=== PATIENT | female | born 1990 | race Two or more races ===

== ENCOUNTER 2018-02-01 18:33 | Emergency (ER) | payer OTHER ==
[~2018-02-01] VITALS: Ht 154.9 cm; Wt 70.3 kg
[~2018-02-01 18:33] MED LIST: ENALAPRIL MALEA10 MG NGT
== END 2018-02-01 22:16 | disposition home or self-care (01) ==
LOC: ER 18:33
DX: G44.209 Tension-type headache, unspecified, not intractable (principal)

== ENCOUNTER 2018-08-04 10:39 | Emergency (ER) | payer OTHER ==
[~2018-08-04] VITALS: Ht 154.9 cm; Wt 81.6 kg
== END 2018-08-04 11:56 | disposition home or self-care (01) ==
LOC: ER 10:39
DX: J02.9 Acute pharyngitis, unspecified (principal)

== ENCOUNTER 2019-01-20 08:36 | Emergency (ER) | payer OTHER ==
[~2019-01-20] VITALS: Ht 154.9 cm; Wt 81.6 kg
== END 2019-01-20 12:32 | disposition home or self-care (01) ==
LOC: ER 08:36
DX: B34.9 Viral infection, unspecified (principal)

== ENCOUNTER 2020-06-30 18:48 | Emergency (ER) | payer OTHER ==
[~2020-06-30] VITALS: Ht 154.9 cm; Wt 81.6 kg
[2020-06-30] MEDS ORDERED: [UNRECOGNIZED DRUG - OTHER] (19:13)
[2020-06-30] MEDS ORDERED: CLEOCIN HCL300 MG PO (23:08)
[2020-06-30] MEDS ORDERED: INTESTINEX680 M2 PO (23:08)
[2020-06-30] MEDS ORDERED: LEVAQUIN750 MG PO (23:08)
== END 2020-06-30 22:50 | disposition home or self-care (01) ==
LOC: ER 18:48
DX: R59.0 Localized enlarged lymph nodes (principal); M54.2 Cervicalgia; Z03.818 Encounter for observation for suspected exposure to other biological agents ruled out
CPT/HCPCS: 70491; Q9965

== ENCOUNTER 2022-11-09 19:11 | Emergency (ER) | payer OTHER ==
[~2022-11-09] VITALS: Ht 154.9 cm; Wt 67.6 kg
[~2022-11-09 19:11] MED LIST changes: +CLEOCIN HCL300 MG PO; +INTESTINEX680 M2 PO; +LEVAQUIN750 MG PO; +[UNRECOGNIZED DRUG - OTHER]
[2022-11-09] MEDS ORDERED: BACLOFEN10 MG (19:33)
[2022-11-10] MEDS ORDERED: PEPCID40 MG PO (05:20)
[2022-11-10] MEDS ORDERED: ZOFRAN8 MG PO (05:20)
[2022-11-10] MEDS ORDERED: LEVSIN0.125 MG PO (05:20)
== END 2022-11-10 05:26 ==
LOC: ER 19:11
DX: K80.20 Calculus of gallbladder without cholecystitis without obstruction (principal); R10.11 Right upper quadrant pain

== ENCOUNTER 2023-01-09 21:26 | Emergency (ER) | payer OTHER ==
[~2023-01-09] VITALS: Ht 154.9 cm; Wt 68.0 kg
[~2023-01-09 21:26] MED LIST changes: +BACLOFEN10 MG; +LEVSIN0.125 MG PO; +PEPCID40 MG PO; +ZOFRAN8 MG PO
[2023-01-10] MEDS ORDERED: KETO10TA2 PO (06:07)
[2023-01-10] MEDS ORDERED: CEPHALEXIN500 MG PO (06:07)
== END 2023-01-10 06:12 ==
LOC: ER 21:26
DX: N30.80 Other cystitis without hematuria (principal); R10.11 Right upper quadrant pain; M79.604 Pain in right leg
CPT/HCPCS: 36415; 74177; Q9965

== ENCOUNTER → 2023-05-21 | Emergency (ER) | payer OTHER ==
[~2023-05-21] VITALS: Ht 154.9 cm; Wt 72.6 kg
[~2023-05-21] MED LIST changes: +AMOX-CLAV 875-1 EACH PO; +CEPHALEXIN500 MG PO; +KETO10TA2 PO; +ZYRTEC10 MG PO
== END | disposition home or self-care (01) ==
LOC: ER 10:27
DX: H66.90 Otitis media, unspecified, unspecified ear (principal)

== ENCOUNTER 2023-08-11 23:02 | Emergency (ER) | payer OTHER ==
[~2023-08-11] VITALS: Ht 154.9 cm; Wt 72.6 kg
[2023-08-11] MEDS ORDERED: NEURONTIN300 MG (23:45)
[2023-08-11] MEDS ORDERED: SULINDAC200 MG PO (23:45)
[2023-08-11] MEDS ORDERED: LYVISPAH20 MG PO (23:45)
[2023-08-12 02:04] LABS: HEMATOCRIT 35.5 % (36.0-45.00); HEMOGLOBIN 11.9 g/dL (12.0-15.00); MEAN CELL VOLUME 91.4 fL (80.00-100.00); MEAN CORPUSCULAR HEMOGLOBIN 30.6 pg (27.00-32.0); MEAN CORPUSCULAR HGB CONC 33.5 g/dl (32.0-36.0); PLATELET COUNT 319 K/uL (150-450); RED BLOOD COUNT 3.89 M/uL (4.00-6.00); RED CELL DISTRIBUTION WIDTH 13.6 % (11.5-14.5)
[2023-08-12 02:15] LABS: BILIRUBIN TOTAL 0.41 mg/dL (0.3-1.2); CREATININE SERUM 0.74 mg/dL (0.55-1.02); GFR 90.38; GLOBULINA 3.8 G/DL (2.4-3.5); POTASSIUM 3.96 mEq/L (3.5-5.1); TOTAL PROTEIN 7.8 gm/dL (6.4-8.2)
[2023-08-12] MEDS ORDERED: FAMCICLOVIR500 MG PO (04:01)
== END 2023-08-12 06:20 | disposition home or self-care (01) ==
LOC: ER 23:02 → EMR PED 08-12 00:22
PROVIDERS: General Practice
DX: K12.0 Recurrent oral aphthae (principal); Z20.822 Contact with and (suspected) exposure to COVID-19

== ENCOUNTER 2023-12-18 19:53 | Emergency (ER) | payer OTHER ==
[~2023-12-18] VITALS: Ht 154.9 cm; Wt 73.9 kg
[~2023-12-18 19:53] MED LIST changes: +FAMCICLOVIR500 MG PO; +LYVISPAH20 MG PO; +NEURONTIN300 MG; +SULINDAC200 MG PO
[2023-12-18] MEDS ORDERED: KETOROLAC TROMETHAMINE 30 MG VIAL IM ONE (20:15)
[2023-12-18 20:47] LABS: HEMATOCRIT 36.1 % (36.0-45.00); HEMOGLOBIN 12.3 g/dL (12.0-15.00); MEAN CELL VOLUME 90.6 fL (80.00-100.00); MEAN CORPUSCULAR HEMOGLOBIN 30.9 pg (27.00-32.0); MEAN CORPUSCULAR HGB CONC 34.1 g/dl (32.0-36.0); PLATELET COUNT 294 K/uL (150-450); RED BLOOD COUNT 3.98 M/uL (4.00-6.00); RED CELL DISTRIBUTION WIDTH 13.6 % (11.5-14.5)
[2023-12-18 21:42] LABS: URINE APPEARANCE Clear; URINE BILIRRUBIN Negative (NEGATIVE); URINE BLOOD Negative; URINE COLOR Yellow; URINE GLUCOSE Negative (NEGATIVE); URINE LEUKOCYTE Negative; URINE NITRATE Negative; URINE PROTEIN Negative (NEGATIVE)
[2023-12-18 21:45] LABS: URINE BACTERIA 929.7 uL (0.0-1933); URINE EPITHELIAL CELLS 22.7 uL (0.0-38.8); URINE RBC 18.6 uL (0.0-20.8); URINE WBC 6.8 uL (0.0-23.2)
[2023-12-19] MEDS ORDERED: LEVSIN/SL0.125 MG SL (01:56)
[2023-12-19] MEDS ORDERED: INTESTINEX680 M2 PO (01:56)
== END 2023-12-19 02:09 ==
LOC: ER 19:54
PROVIDERS: Emergency Medicine
DX: R10.9 Unspecified abdominal pain (principal); M19.90 Unspecified osteoarthritis, unspecified site

== ENCOUNTER 2024-09-28 23:18 | Emergency (ER) | payer OTHER ==
[~2024-09-28] VITALS: Ht 154.9 cm; Wt 70.3 kg
[~2024-09-28 23:18] MED LIST changes: +LEVSIN/SL0.125 MG SL
[2024-09-28 23:29] VITALS: BP 126/86; O2SAT 99
[2024-09-29] MEDS ORDERED: FAMOTIDINE/PF 20 MG/2 ML VIAL IV PUSH STA (00:34)
[2024-09-29] MEDS ORDERED: PROMETHAZINE HCL 50 MG/ML AMPUL IM STA (00:34)
[2024-09-29] MEDS ORDERED: KETOROLAC TROMETHAMINE 30 MG VIAL IV STA (00:36)
[2024-09-29] MEDS ORDERED: PROMETHAZINE HCL 50 MG/ML AMPUL IM ONE (00:40)
[2024-09-29] MEDS ORDERED: FAMOTIDINE/PF 20 MG/2 ML VIAL ONE (00:41)
[2024-09-29] MEDS ORDERED: 0.9 % SODIUM CHLORIDE 500 ML IV ONE (00:45)
[2024-09-29 01:14] LABS: PH,URINE 6.5 (5.0-8.0); URINE APPEARANCE Cloudy; URINE BILIRRUBIN Negative (NEGATIVE); URINE BLOOD Negative; URINE COLOR Dark Yellow; URINE GLUCOSE Negative (NEGATIVE); URINE LEUKOCYTE Trace; URINE NITRATE Negative; URINE PROTEIN 30 (NEGATIVE)
[2024-09-29 01:14] LABS: HEMOGLOBIN 13.1 g/dL (12.0-15.00); MEAN CELL VOLUME 93.9 fL (80.00-100.00); MEAN CORPUSCULAR HEMOGLOBIN 30.7 pg (27.00-32.0); MEAN CORPUSCULAR HGB CONC 32.7 g/dl (32.0-36.0); PLATELET COUNT 291 K/uL (150-450); RED BLOOD COUNT 4.26 M/uL (4.00-6.00); RED CELL DISTRIBUTION WIDTH 13.6 % (11.5-14.5)
[2024-09-29 01:18] LABS: URINE EPITHELIAL CELLS 94.6 uL (0.0-38.8); URINE RBC 32.1 uL (0.0-20.8); URINE WBC 119.6 uL (0.0-23.2)
[2024-09-29 02:18] LABS: URINE BACTERIA > 9821.5 uL (0.0-1933); URINE CAST 0.58 uL (0.0-1.40); URINE KETONE >=160 (NEGATIVE)
[2024-09-29 02:32] LABS: ALBUMIN 4.2 gm/dL (3.4-5.0); ALKALINE PHOSPHATASE 68 U/L (50-136); ALT/SGPT 15 U/L (12-78); AMYLASE 61 U/L (25-115); ANION GAP 13 (10.0-20.0); AST/SGOT 14 U/L (15-37); BILIRUBIN TOTAL 0.89 mg/dL (0.3-1.2); BLOOD UREA NITROGEN 11 mg/dL (7-18); BUN CREA RATIO 16 (7.0-25.0); CALCIUM 9.1 mg/dL (8.5-10.1); CARBON DIOXIDE 26 mEq/L (21-32); CHLORIDE 106 mmol/L (98-107); CREATININE SERUM 0.68 mg/dL (0.55-1.02); GFR 99.04; GLOBULINA 3.7 G/DL (2.4-3.5); GLUCOSE FASTING 107 mg/dL (65-100); LIPASE 26 U/L (13-75); OSMOLALITY SERUM 281 MOSM/KG (275-295); POTASSIUM 3.71 mEq/L (3.5-5.1); SODIUM 141 mmol/L (136-145); TOTAL PROTEIN 7.9 gm/dL (6.4-8.2)
[2024-09-29 02:54] LABS: HCG QUANTITATIVE < 1 mUI/mL (1-3)
[2024-09-29] MEDS ORDERED: CEFTRIAXONE SODIUM 1,000 MG VIAL IV STA (04:09)
[2024-09-29] MEDS ORDERED: DOLOGESIC-DF 51 EACH PO (04:13)
[2024-09-29] MEDS ORDERED: CEFTRIAXONE SODIUM 1,000 MG VIAL ONE (04:15)
== END 2024-09-29 04:20 ==
LOC: ER 23:21
PROVIDERS: General Practice
DX: N39.0 Urinary tract infection, site not specified (principal); N83.209 Unspecified ovarian cyst, unspecified side; R11.10 Vomiting, unspecified

== ENCOUNTER 2024-10-02 20:57 | Emergency (ER) | payer OTHER ==
[~2024-10-02] VITALS: Ht 154.9 cm; Wt 72.6 kg
[~2024-10-02 20:57] MED LIST changes: +DOLOGESIC-DF 51 EACH PO
[2024-10-02] MEDS ORDERED: CEFTRIAXONE SODIUM 1,000 MG VIAL IV ONE (23:45)
[2024-10-02] MEDS ORDERED: KETOROLAC TROMETHAMINE 30 MG VIAL IV ONE (23:45)
[2024-10-02] MEDS ORDERED: KETOROLAC TROMETHAMINE 30 MG VIAL ONE (23:57)
[2024-10-02] MEDS ORDERED: CEFTRIAXONE SODIUM 1,000 MG VIAL ONE (23:57)
[2024-10-03 00:35] LABS: HEMATOCRIT 37.5 % (36.0-45.00); HEMOGLOBIN 12.8 g/dL (12.0-15.00); MEAN CELL VOLUME 91.9 fL (80.00-100.00); MEAN CORPUSCULAR HEMOGLOBIN 31.4 pg (27.00-32.0); MEAN CORPUSCULAR HGB CONC 34.1 g/dl (32.0-36.0); PLATELET COUNT 313 K/uL (150-450); RED BLOOD COUNT 4.08 M/uL (4.00-6.00); RED CELL DISTRIBUTION WIDTH 13.8 % (11.5-14.5)
[2024-10-03 00:46] LABS: ALBUMIN 4.1 gm/dL (3.4-5.0); BILIRUBIN TOTAL 0.32 mg/dL (0.3-1.2); CALCIUM 9.3 mg/dL (8.5-10.1); CREATININE SERUM 0.66 mg/dL (0.55-1.02); GFR 102.52; GLOBULINA 3.7 G/DL (2.4-3.5); POTASSIUM 3.63 mEq/L (3.5-5.1); TOTAL PROTEIN 7.8 gm/dL (6.4-8.2)
[2024-10-03 00:57] LABS: URINE APPEARANCE Cloudy; URINE BILIRRUBIN Negative (NEGATIVE); URINE BLOOD Negative; URINE COLOR Yellow; URINE GLUCOSE Negative (NEGATIVE); URINE KETONE Trace (NEGATIVE); URINE LEUKOCYTE Trace; URINE NITRATE Negative; URINE PROTEIN 30 (NEGATIVE)
[2024-10-03 01:01] LABS: URINE BACTERIA 5248.3 uL (0.0-1933); URINE CAST 0.88 uL (0.0-1.40); URINE EPITHELIAL CELLS 110.5 uL (0.0-38.8); URINE RBC 82.7 uL (0.0-20.8); URINE WBC 135.9 uL (0.0-23.2)
[2024-10-03 01:56] LABS: URINE CRYSTALS MANY /HPF
== END 2024-10-03 02:56 | disposition home or self-care (01) ==
LOC: ER 20:59
PROVIDERS: General Practice
DX: N83.209 Unspecified ovarian cyst, unspecified side (principal); N39.0 Urinary tract infection, site not specified; R10.9 Unspecified abdominal pain; R10.2 Pelvic and perineal pain